=== PATIENT | male | born 1975 | race Caucasian/White ===

== ENCOUNTER 2021-05-04 17:32 | Inpatient (IN) ==
[2021-05-04] MEDS ORDERED: Acetaminophen 325 MG TABLET PO PRN (22:17)
[2021-05-04] MEDS ORDERED: Naloxone 0.4 MG/ML INJ IVP PRN (22:17)
[2021-05-04 23:04] LABS: Amphetamine Screen,Urine Positive ng/mL (Cutoff=1000); Barbiturate Screen,Urine Negative ng/mL (Cutoff=200); Benzodiazepines Screen,Urine Negative ng/mL (Cutoff=200); Cannabinoid Screen,Urine Negative ng/mL (Cutoff = 50); Cocaine Screen,Urine Negative ng/mL (Cutoff= 300); Opiate Screen,Urine Positive ng/mL (Cutoff=300); Phencyclidine Screen,Urine Negative ng/mL (Cutoff=25)
[2021-05-04 23:06] LABS: Hematocrit 27.8 % (37.5-50.1); Mean Corpuscular Hemoglobin 31.3 pg (28.0-33.3); Mean Corpuscular Volume 87.1 fL (83.0-100.0); Mean Platelet Volume 9.9 fL (9.4-12.4); Platelet Count 189 K/mcL (140-400); Red Blood Count 3.19 M/mcL (4.19-5.50); White Blood Count 20.1 K/mcL (4.3-11.1)
[2021-05-04 23:13] LABS: INR 1.2; Prothrombin Time 13.2 Seconds (9.4-12.1)
[2021-05-04 23:15] LABS: Calcium 7.6 mg/dL (8.6-10.3); Magnesium 1.6 mg/dL (1.6-2.6); Phosphorous 4.7 mg/dL (2.7-4.5); Potassium 3.9 mEq/L (3.5-5.1)
[2021-05-04 23:27] LABS: Creatine Kinase 2785 Units/L (30-223); Ethanol < 10 mg/dL (Less than 10)
[2021-05-04] MEDS ORDERED: 0.9 % Sodium Chloride 1,000 ML IVC SCH (23:30)
[2021-05-04 23:50] LABS: Monocytes # 3.6 K/mcL (0.0-1.3); Neutrophils # 12.5 K/mcL (1.6-8.9)
[2021-05-04 23:51] LABS: Platelet Estimate Normal (Normal)
[2021-05-05] MEDS: 0.9 % Sodium Chloride 1,000 ML IVC SCH ×4 (02:20→20:31)
[2021-05-05 02:35] LABS: Hematocrit 28.4 % (37.5-50.1); Hemoglobin 10.1 g/dL (12.9-16.9); Mean Corpuscular HGB Conc 35.6 g/dL (31.6-35.5); Mean Corpuscular Hemoglobin 31.6 pg (28.0-33.3); Mean Corpuscular Volume 88.8 fL (83.0-100.0); Mean Platelet Volume 9.9 fL (9.4-12.4); Neutrophils # 14.7 K/mcL (1.6-8.9); Platelet Count 189 K/mcL (140-400); Red Cell Distribution Width 13.2 % (11.5-14.5); White Blood Count 19.9 K/mcL (4.3-11.1)
[2021-05-05] MEDS: Nicotine 14 MG PATCH.TD24 TD SCH (02:36)
[2021-05-05 02:53] LABS: Calcium 7.6 mg/dL (8.6-10.3); Potassium 3.8 mEq/L (3.5-5.1)
[2021-05-05 02:55] LABS: Protein/Creatinine Ratio,Urine 0.82 mg/mg (0.00-0.20); Sodium, Urine 23.6 mEq/L
[2021-05-05 03:16] LABS: Lymphocytes # 4.4 K/mcL (0.6-4.6); Monocytes # 0.8 K/mcL (0.0-1.3); Platelet Estimate Normal (Normal)
[2021-05-05] MEDS: Pantoprazole 40 MG VIAL IVP SCH ×2 (05:23→17:47)
[2021-05-05] MEDS ORDERED: Piperacillin/Tazobactam 3.375 GM in 0.9 % Sodium Chloride Mini Bag 100 ML IVPB SCH (06:00)
[2021-05-05 08:35] LABS: Albumin 2.8 g/dL (3.5-5.7); Albumin/Globulin Ratio 1.2 (1.1-2.2); Bilirubin,Direct 0.2 mg/dL (0.0-0.2); Bilirubin,Indirect 0.5 mg/dL (0.0-1.0); Bilirubin,Total 0.7 mg/dL (0.3-1.0); Globulin 2.3 g/dL (2.4-3.5); Total Protein 5.1 g/dL (6.4-8.9)
[2021-05-05] MEDS ORDERED: Pantoprazole 40 MG VIAL IVP SCH (09:00)
[2021-05-05 10:51] LABS: Adenovirus F 40/41 PCR Not detected (Not detect); Astrovirus PCR Not detected (Not detect); C.difficile Toxin A/B Gene PCR Not detected (Not detect); Campylobacter by PCR Not detected (Not detect); Cryptosporidium by PCR Not detected (Not detect); Cyclospora cayetanensis PCR Not detected (Not detect); E. coli O157 by PCR Not detected (Not detect); Entamoeba histolytica PCR Not detected (Not detect); Enteroaggregative E.coli(EAEC) Not detected (Not detect); Enteropathogenic E.coli(EPEC) Not detected (Not detect); Enterotoxigenic E.coli (ETEC) Not detected (Not detect); Giardia lamblia PCR Not detected (Not detect); Norovirus GI/GII PCR Not detected (Not detect); Plesiomonas shigelloides PCR Not detected (Not detect); Rotavirus A PCR Not detected (Not detect); Salmonella PCR Not detected (Not detect); Sapovirus PCR Not detected (Not detect); Shig/EnteroinvasiveE coli EIEC Not detected (Not detect); Shigalike tox-prod E coli STEC Not detected (Not detect); Vibrio PCR Not detected (Not detect); Vibrio cholerae PCR Not detected (Not detect); Yersinia enterocolitica PCR Not detected (Not detect)
[2021-05-05] MEDS: Piperacillin/Tazobactam 3.375 GM in 0.9 % Sodium Chloride Mini Bag 100 ML IVPB SCH ×2 (13:04→22:31)
[2021-05-05 13:39] LABS: Calcium 7.6 mg/dL (8.6-10.3); Potassium 3.4 mEq/L (3.5-5.1)
[2021-05-05] MEDS ORDERED: Acetaminophen IV 1,000 MG/100 ML BAG IVPB ONE (20:47)
[2021-05-05] MEDS: *HR* Promethazine 25 MG/ML VIAL IM PRN (21:03)
[2021-05-05] MEDS: Melatonin 3 MG TABLET PO PRN (21:05)
[2021-05-05] MEDS: Magic Mouthwash 10 ML UD Cup PO SCH (21:17)
[2021-05-06 01:18] LABS: Basophils % 0.2 %; Eosinophils % 0.4 %; Hematocrit 24.2 % (37.5-50.1); Immature Granulocytes % 0.4 % (0-4); Lymphocytes # 1.6 K/mcL (0.6-4.6); Lymphocytes % 15.9 %; Mean Corpuscular HGB Conc 35.1 g/dL (31.6-35.5); Mean Corpuscular Hemoglobin 31.5 pg (28.0-33.3); Mean Corpuscular Volume 89.6 fL (83.0-100.0); Mean Platelet Volume 9.8 fL (9.4-12.4); Monocytes # 0.9 K/mcL (0.0-1.3); Monocytes % 9.4 %; Platelet Count 125 K/mcL (140-400); Red Cell Distribution Width 13.4 % (11.5-14.5); Segmented Neutrophils % 73.7 %
[2021-05-06 01:20] LABS: Hemoglobin 8.5 g/dL (12.9-16.9); Neutrophils # 7.4 K/mcL (1.6-8.9)
[2021-05-06 01:35] LABS: Calcium 7.8 mg/dL (8.6-10.3); Magnesium 1.8 mg/dL (1.6-2.6); Phosphorous 1.9 mg/dL (2.7-4.5); Potassium 3.5 mEq/L (3.5-5.1)
[2021-05-06 01:43] LABS: Hypochromasia Present (Not Present); Platelet Estimate Slight Decrease (Normal); Polychromasia 1+ (Not Present)
[2021-05-06 01:52] LABS: Ferritin 147 ng/mL (20-250); Iron < 10 mcg/dL (65-175); Transferrin 153 mg/dL (203-362)
[2021-05-06 02:25] LABS: HIV-1&2 Antibody & p24 Ag Nonreactive (Nonreactive); Hepatitis C Virus Antibody Nonreactive (Nonreactive)
[2021-05-06 03:33] LABS: Complement C3 85 mg/dL (87-200)
[2021-05-06 03:46] LABS: Hepatitis B Surface Antigen Reactive (Nonreactive)
[2021-05-06] MEDS: Nicotine 14 MG PATCH.TD24 TD SCH (06:44)
[2021-05-06] MEDS: Piperacillin/Tazobactam 3.375 GM in 0.9 % Sodium Chloride Mini Bag 100 ML IVPB SCH ×3 (06:44→22:47)
[2021-05-06] MEDS: Pantoprazole 40 MG VIAL IVP SCH ×2 (06:45→17:20)
[2021-05-06] MEDS: Magic Mouthwash 10 ML UD Cup PO SCH ×3 (07:43→17:19)
[2021-05-06] MEDS: 0.9 % Sodium Chloride 1,000 ML IVC SCH (13:51)
[2021-05-06] MEDS: *HR* Promethazine 25 MG/ML VIAL IM PRN (20:14)
[2021-05-06] MEDS: Melatonin 3 MG TABLET PO PRN (22:48)
[2021-05-07 02:15] VITALS: O2SAT 96
[2021-05-07] MEDS: Pantoprazole 40 MG VIAL IVP SCH (05:31)
[2021-05-07] MEDS: Piperacillin/Tazobactam 3.375 GM in 0.9 % Sodium Chloride Mini Bag 100 ML IVPB SCH (05:31)
[2021-05-07] MEDS: Nicotine 14 MG PATCH.TD24 TD SCH (05:32)
[2021-05-07] MEDS: 0.9 % Sodium Chloride 1,000 ML IVC SCH ×2 (05:33→07:16)
[2021-05-07 05:57] LABS: Basophils % 0.3 %; Eosinophils # 0.2 K/mcL (0.0-0.6); Eosinophils % 1.6 %; Hematocrit 23.6 % (37.5-50.1); Hemoglobin 8.1 g/dL (12.9-16.9); Immature Granulocytes % 0.5 % (0-4); Lymphocytes # 2.3 K/mcL (0.6-4.6); Lymphocytes % 23.6 %; Mean Corpuscular HGB Conc 34.3 g/dL (31.6-35.5); Mean Corpuscular Hemoglobin 31.5 pg (28.0-33.3); Mean Corpuscular Volume 91.8 fL (83.0-100.0); Mean Platelet Volume 10.2 fL (9.4-12.4); Monocytes # 0.7 K/mcL (0.0-1.3); Monocytes % 7.2 %; Neutrophils # 6.5 K/mcL (1.6-8.9); Nucleated Red Blood Cells 0.2 /100 WBC (0); Platelet Count 153 K/mcL (140-400); Red Blood Count 2.57 M/mcL (4.19-5.50); Red Cell Distribution Width 13.5 % (11.5-14.5); Segmented Neutrophils % 66.8 %; White Blood Count 9.7 K/mcL (4.3-11.1)
[2021-05-07 06:06] LABS: BUN/Creatinine Ratio 17 (6-26); Blood Urea Nitrogen 20 mg/dL (6-20); Carbon Dioxide 25 mEq/L (23-29); Chloride 109 mEq/L (98-107); Creatine Kinase 352 Units/L (30-223); Glucose 85 mg/dL (70-105); Magnesium 1.6 mg/dL (1.6-2.6); Osmolality,Calculated 292 (280-300); Potassium 3.2 mEq/L (3.5-5.1); Sodium 140 mEq/L (136-145); eGFR For African Americans > 60 (> 60); eGFR For Non-African Americans > 60 (> 60)
[2021-05-07 06:57] VITALS: BP 145/87; PULSE 71; TEMP 97.8
[2021-05-07] MEDS: Magic Mouthwash 10 ML UD Cup PO SCH ×2 (08:08→11:23)
[2021-05-07] MEDS ORDERED: Lactobacillus 1 EACH CAP.SPRINK PO SCH (09:00)
[2021-05-08 15:14] LABS: ANA IgG by ELISA NONE DETECTED (None Detected)
[2021-05-09 18:35] LABS: ANCA IFA Titer <1:20 (<1:20)
[2021-05-10 10:37] LABS: Serine Protease-3 Antibody 1 AU/mL (0-19)
[2021-05-10 10:38] LABS: ANCA IFA Pattern NONE DETECTED (None Detected)
== END 2021-05-07 14:04 | disposition left against medical advice (07) | DRG 720 ==
LOC: 2ANU → SUATTDRO 23:19
PROVIDERS: ADMIT Student in an Organized Health Care Education/Training Program; ATTEND Pharmacist